=== PATIENT | male | born 1965 | race African-American/Black ===

== ENCOUNTER 2017-12-21 15:23 | Outpatient (CLI) | payer SELFPAY | END 2017-12-21 15:24 | disposition home or self-care (01) | LOC: BICRAD 15:23 | PROVIDERS: ATTEND Internal Medicine | DX: Z02.71 Encounter for disability determination (principal); E11.9 Type 2 diabetes mellitus without complications; I10 Essential (primary) hypertension; M19.90 Unspecified osteoarthritis, unspecified site; M51.36 Other intervertebral disc degeneration, lumbar region; M43.16 Spondylolisthesis, lumbar region | CPT/HCPCS: 72100 ==